=== PATIENT | female | born 1935 | race Two or more races ===

== ENCOUNTER 2019-03-25 13:27 | Outpatient (CLI) | payer MEDICARE ==
[~2019-03-25] VITALS: Ht 152.4 cm; Wt 63.0 kg
[2019-03-25 16:25] VITALS: BP 143/74
[2019-03-25] MEDS ORDERED: OMEPRAZOLE40 M1 ORAL (16:25)
[2019-03-25] MEDS ORDERED: CREON DR 12,001 EACH PO (16:25)
[2019-03-25] MEDS ORDERED: FIBER350 GM PO (16:25)
--- NOTE | 2019-03-25 17:30 | Consultation ---
DATE OF CONSULTATION: 03/25/2019 CONSULTING PHYSICIAN: Zia Morales M.D. CHIEF COMPLAINT: Abdominal pain. HISTORY OF PRESENT ILLNESS: This is a very pleasant 84-year-old female with numerous medical problems, which I will dictate in a second. Family brought a lot of records from another hospital admissions. Apparently, the patient had history of cholecystitis requiring cholecystectomy. The patient had evidence of SIBO requiring Xifaxan treatment. The patient had evidence of pancreatitis, which required admission to the hospital after cholecystectomy. The patient has a pancreatic cyst. She had an FNA done in October 2018. Apparently results were negative. The patient complained of some gas, bloating, abdominal pain, weight loss, weakness. Had multiple endoscopies and colonoscopies. At one point, she was diagnosed with gastric ulcer, which on subsequent endoscopy showed evidence of healing. H. pylori negative. PAST MEDICAL HISTORY: 1. GERD. 2. Peptic ulcer disease. 3. SIBO. 4. Pancreatitis. 5. Pancreatic cyst. 6. Diabetes. ALLERGIES: To Levaquin. MEDICATIONS: Please see medication reconciliation list. PAST SURGICAL HISTORY: Has history of cholecystectomy and hysterectomy. FAMILY HISTORY: Noncontributory. SOCIAL HISTORY: The patient denies any tobacco, alcohol, or drug abuse. REVIEW OF SYSTEMS: Positive for abdominal pain, bloating, diarrhea, nausea, vomiting. PHYSICAL EXAMINATION: VITAL SIGNS: Temperature is 97.8, blood pressure is 143/74, pulse 71, respirations 20. HEENT: Normocephalic and atraumatic. Sclerae anicteric. NECK: Supple. No evidence of obvious lymphadenopathy. CARDIOVASCULAR: Regular rate and rhythm. Plus S1 and S2. No obvious murmur. LUNGS: Clear to auscultation bilaterally. ABDOMEN: Positive bowel sounds. Soft. Mildly distended. Mildly tympanic to percussion. No rebound. No guarding. No peritoneal sign. EXTREMITIES: No cyanosis, no clubbing, no edema. ASSESSMENT: This is an 84-year-old female with numerous medical problems. 1. From GI standpoint has chronic GERD, on PPI twice a day. 2. History of peptic ulcer disease and H. pylori negative, status post treatment. 3. SIBO, status post 1 course of Xifaxan. 4. Cholecystitis, status post cholecystectomy. 5. Pancreatic cyst, status post FNA. PLAN: The patient was instructed to continue on PPI twice a day. Continue on Creon 1 tablet 3 times a day with each meal. Xifaxan at this time for 14 days followed by Align 1 tablet daily for 2 months. The patient was reassured about condition that there is not anything at this time life-threatening and concerning. The patient was instructed at one point might need a repeat EUS with FNA of pancreas given the weight loss and prior history of pancreatic cyst, but she had done in October. We recommend to be done at least in July of 2019. Meanwhile, the patient was told to come back in a month for followup. Avoid any uncooked foods and vegetables. Avoid food with lactulose in it or dairy products. I will follow her up in a month. Zia Morales M.D. DR: CLAUDETTE JOB#: [id number] CC:
== END 2019-03-25 15:27 | disposition home or self-care (01) ==
LOC: PAN 13:27
DX: R10.9 Unspecified abdominal pain (principal); K21.9 Gastro-esophageal reflux disease without esophagitis; Z87.11 Personal history of peptic ulcer disease; Z90.49 Acquired absence of other specified parts of digestive tract; R19.7 Diarrhea, unspecified; R14.0 Abdominal distension (gaseous); K56.609 Unspecified intestinal obstruction, unspecified as to partial versus complete obstruction
CPT/HCPCS: G0463

== ENCOUNTER 2019-04-10 13:34 | Outpatient (CLI) | payer MEDICARE, MEDICAID ==
[~2019-04-10 13:34] MED LIST: CREON DR 12,001 EACH PO; FIBER350 GM PO; OMEPRAZOLE40 M1 ORAL
--- NOTE | 2019-04-10 14:53 | General Progress Note ---
Assessment/Plan Assessment/Plan: 1. GERD. 2. Peptic ulcer disease. 3. SIBO. 4. Pancreatitis. 5. Pancreatic cyst. 6. Diabetes. had a long D/w her son who is MD plan ERCP Subjective ROS Limited/Unobtainable: Yes Allergies: Coded Allergies: LEVOFLOXACIN (Verified Allergy, Unknown, 03/25/19) Objective General Appearance: alert EENT: normal ENT inspection Neck: normal alignment Cardiovascular: normal rate Respiratory/Chest: decreased breath sounds Abdomen: normal bowel sounds, non tender, soft Extremities: non-tender Zia Morales MD Apr 10, 2019 14:53
== END 2019-04-10 15:34 | disposition home or self-care (01) ==
LOC: PAN 13:34
DX: K21.9 Gastro-esophageal reflux disease without esophagitis (principal); K27.9 Peptic ulcer, site unspecified, unspecified as acute or chronic, without hemorrhage or perforation; K56.609 Unspecified intestinal obstruction, unspecified as to partial versus complete obstruction; E11.9 Type 2 diabetes mellitus without complications; K86.2 Cyst of pancreas; Z88.8 Allergy status to other drugs, medicaments and biological substances
CPT/HCPCS: 99212

== ENCOUNTER 2019-04-15 09:07 | Day surgery (SDC) | payer MEDICARE, MEDICAID ==
[2019-04-15] VITALS (9 sets, daily range): BP systolic 135–154; BP diastolic 57–77
[~2019-04-15] VITALS: Ht 165.1 cm; Wt 59.9 kg
[~2019-04-15 09:07] MED LIST changes: +Ketamine 500mg/10ml vial ONE; +LR 1000ml 1,000 ML IVLG SCH; +Lidocaine 1% Plain 30 ml INJ ONE; +Midazolam 2mg/2ml Inj ONE
--- NOTE | 2019-04-15 09:40 | Short Stay Surgery H&P ---
History of Present Illness History of Present Illness Chief Complaint see recent office consult note HPI Beatrice Marcelino is a 84 year old female who was admitted on for Abdominal Pain Patient History Allergies: Coded Allergies: LEVOFLOXACIN (Verified Allergy, Unknown, 03/25/19) Medication History Scheduled Lipase/Protease/Amylase (Creon Dr 12,000 Units Capsule), 1 EACH PO TID, ( Reported) Omeprazole (Omeprazole), 40 MG ORAL DAILY, (Reported) Miscellaneous Medications Dextrin (Fiber), Unknown Dose PO, (Reported) Physical Exam Vital Signs Last Vital Signs Date Time Temp Pulse Resp B/P (MAP) Pulse Ox O2 Delivery O2 Flow Rate FiO2 04/15/19 09:34 Room Air Plan Attestation Are the patient's medical conditions optimized for surgery? Zia Morales MD Apr 15, 2019 09:40
--- NOTE | 2019-04-15 09:40 | Pre-Procedure Note/Attestation ---
Pre-Procedure Note/Attestation Complete Prior to Procedure Planned Procedure: not applicable Procedure Narrative: ercp Indications for Procedure Pre-Operative Diagnosis: papillary stenosis Attestation I attest that I discussed the nature of the procedure; its benefits; risks and complications; and alternatives (and the risks and benefits of such alternatives ), prior to the procedure, with the patient (or the patient's legal maintenance representative). I attest that, if there was a reasonable possibility of needing a blood transfusion, the patient (or the patient's legal maintenance representative) was given the [facility] standardized written summary, pursuant to the [place] Blood Safety Act ([place] Health and Safety Code # 1645, as amended). I attest that I re-evaluated the patient just prior to the surgery and that there has been no change in the patient's H&P, except as documented below: Zia Morales MD Apr 15, 2019 09:40
[2019-04-15] MEDS ORDERED: Iothalamate Meglumine 60% 50ML INJ ONE ×2 (10:18→11:30)
[2019-04-15 10:28] LABS: BASOPHILS % (AUTO) 0.7 % (0.0-2.0); HEMOGLOBIN 11.7 G/DL (12.0-16.0); LYMPHOCYTES % (AUTO) 17.3 % (20.0-45.0); MEAN CORPUSCULAR VOLUME 85 FL (80-99); MONOCYTES % (AUTO) 7.9 % (1.0-10.0); NEUTROPHILS % (AUTO) 73.1 % (45.0-75.0); PLATELET COUNT 267 K/UL (150-450); RED BLOOD COUNT 4.12 M/UL (4.20-5.40); RED CELL DISTRIBUTION WIDTH 15.8 % (11.6-14.8); WHITE BLOOD COUNT 6.3 K/UL (4.8-10.8)
[2019-04-15] MEDS ORDERED: LR 1000ml 1,000 ML IVLG SCH ×2 (10:34)
--- NOTE | 2019-04-15 10:42 | Anethesia Preoperative Eval ---
Anesthesia Pre-op PMH/ROS General Date of Evaluation: Apr 15, 2019 Time of Evaluation: 11:10 Anesthesiologist: Karthikeyan ASA Score: ASA 3 Mallampati Score Class I : Soft palate, uvula, fauces, pillars visible Class II: Soft palate, uvula, fauces visible Class III: Soft palate, base of uvula visible Class IV: Only hard plate visible Mallampati Classification: Class II Surgeon: Andrew Diagnosis: Abd Pain Surgical Procedure: ERCP Anesthesia History: none Family History: no anesthesia problems Allergies: Coded Allergies: LEVOFLOXACIN (Verified Allergy, Intermediate, swelling, 04/15/19) Medications: see eMAR Patient NPO?: Yes Past Medical History Cardiovascular: Reports: HTN Pulmonary: Reports: other - Bronchitis, L Lobectomy Gastrointestinal/Genitourinary: Reports: other - Pancreatitis, GI Ulcer, SBO HEENT: Reports: cataract (L), cataract (R) PSxH Narrative: DEB, Cholecystectomy, L Lobectomy Anesthesia Pre-op Phys. Exam Physician Exam Last Vital Signs Date Time Temp Pulse Resp B/P (MAP) Pulse Ox O2 Delivery O2 Flow Rate FiO2 04/15/19 09:39 96.8 85 18 154/77 98 Room Air Constitutional: NAD Neurologic: CN 2-12 intact Cardiovascular: RRR Respiratory: CTA Gastrointestinal: S/NT/ND Airway Exam Mallampati Score: Class II MO: limited ROM: limited Teeth: missing, intact Anesthesia Pre-op A/P Labs Hematology Test 04/15/19 10:15 White Blood Count 6.3 K/UL (4.8-10.8) Red Blood Count 4.12 M/UL (4.20-5.40) L Hemoglobin 11.7 G/DL (12.0-16.0) L Hematocrit 35.0 % (37.0-47.0) L Mean Corpuscular Volume 85 FL (80-99) Mean Corpuscular Hemoglobin 28.4 PG (27.0-31.0) Mean Corpuscular Hemoglobin Concent 33.5 G/DL (32.0-36.0) Red Cell Distribution Width 15.8 % (11.6-14.8) H Platelet Count 267 K/UL (150-450) Mean Platelet Volume 6.9 FL (6.5-10.1) Neutrophils (%) (Auto) 73.1 % (45.0-75.0) Lymphocytes (%) (Auto) 17.3 % (20.0-45.0) L Monocytes (%) (Auto) 7.9 % (1.0-10.0) Eosinophils (%) (Auto) 1.0 % (0.0-3.0) Basophils (%) (Auto) 0.7 % (0.0-2.0) Coagulation Test 04/15/19 10:15 Prothrombin Time Pending Prothromb Time International Ratio Pending Activated Partial Thromboplast Time Pending Chemistry Test 04/15/19 10:15 Sodium Level Pending Potassium Level Pending Chloride Level Pending Carbon Dioxide Level Pending Blood Urea Nitrogen Pending Creatinine Pending Estimat Glomerular Filtration Rate Pending Glucose Level Pending Calcium Level Pending Total Bilirubin Pending Aspartate Amino Transf (AST/SGOT) Pending Alanine Aminotransferase (ALT/SGPT) Pending Alkaline Phosphatase Pending Total Protein Pending Albumin Pending Globulin Pending Amylase Level Pending Lipase Pending Risk Assessment & Plan Assessment: ASA 3 Plan: TIVA Status Change Before Surgery: Jaspreet Waller MD Apr 15, 2019 10:42
--- NOTE | 2019-04-15 10:43 | Immediate Post-Op Evaluation ---
Immediate Post-Op Evalulation Immediate Post-Op Evalulation Procedure: ERCP Date of Evaluation: Apr 15, 2019 Time of Evaluation: 12:23 IV Fluids: 600 LR Blood Products: 0 Estimated Blood Loss: 10 Urinary Output: 0 Blood Pressure Systolic: 141 Blood Pressure Diastolic: 77 Pulse Rate: 89 Respiratory Rate: 16 O2 Sat by Pulse Oximetry: 100 Temperature (Fahrenheit): 97.3 Pain Score (1-10): 2 Nausea: No Vomiting: No Complications 0 Patient Status: awake, reacts, patent, none Hydration Status: adequate Jaspreet Napier MD Apr 15, 2019 10:43
--- NOTE | 2019-04-15 10:44 | 48 Hour Post Anesthesia Eval ---
Post Anesthesia Evaluation Procedure: ERCP Date of Evaluation: Apr 15, 2019 Time of Evaluation: 14:32 Blood Pressure Systolic: 167 0: 92 Pulse Rate: 89 Respiratory Rate: 18 Temperature (Fahrenheit): 98 O2 Sat by Pulse Oximetry: 99 Airway: patent Nausea: No Vomiting: No Pain Intensity: 2 Hydration Status: adequate Cardiopulmonary Status: Stable Mental Status/LOC: patient returned to baseline Follow-up Care/Observations: 0 Post-Anesthesia Complications: 0 Follow-up care needed: ready to discharge Jaspreet Napier MD Apr 15, 2019 10:44
[2019-04-15] MEDS ORDERED: Midazolam 2mg/2ml Inj IVP PRN ×2 (10:45)
[2019-04-15] MEDS ORDERED: LORazepam Inj 2mg/ml 1ml IV PRN ×2 (10:45)
[2019-04-15] MEDS ORDERED: oxyCODONE HCL/Acetaminophen 5/325mg ORAL PRN ×2 (10:45)
[2019-04-15] MEDS ORDERED: HYDROcodone/Acetamin 7.5/325 tab ORAL PRN ×2 (10:45)
[2019-04-15] MEDS ORDERED: fentaNYL 100 mcg/2 mL IV PRN ×2 (10:45)
[2019-04-15] MEDS ORDERED: Meperidine 25mg/0.5ml Inj (FOR RIGORS ONLY) IV PRN ×2 (10:45)
[2019-04-15] MEDS ORDERED: Metoclopramide 10mg/2ml Inj IVP PRN ×2 (10:45)
[2019-04-15] MEDS ORDERED: DiphenhydrAMINE 50mg/ml Inj IVP PRN ×2 (10:45)
[2019-04-15] MEDS ORDERED: HYDROcodone/Acetamin 5/325 tab ORAL PRN ×2 (10:45)
[2019-04-15] MEDS ORDERED: Atropine Sulfate 0.4mg/ml inj IVP PRN ×2 (10:45)
[2019-04-15] MEDS ORDERED: Ketorolac 30mg Inj IV PRN ×4 (10:45)
[2019-04-15] MEDS ORDERED: Hydromorphone 0.5mg/0.5ml inj IVP PRN ×2 (10:45)
[2019-04-15] MEDS ORDERED: Labetalol 5mg/ml 20ml vial IV PRN ×2 (10:45)
[2019-04-15] MEDS ORDERED: Propofol 200mg/20ml IV ONE (11:00)
[2019-04-15] MEDS ORDERED: LR 1000ml ONE (11:00)
[2019-04-15 11:06] LABS: ANION GAP 10 mmol/L (5-15); BLOOD UREA NITROGEN 10 mg/dL (7-18); CALCIUM 8.8 MG/DL (8.5-10.1); CARBON DIOXIDE 29 MMOL/L (21-32); CHLORIDE 97 MMOL/L (98-107); CREATININE 0.5 MG/DL (0.55-1.30); POTASSIUM 3.6 MMOL/L (3.5-5.1); SODIUM 136 MMOL/L (136-145)
[2019-04-15 11:28] LABS: ALANINE AMINOTRANSFERASE 218 U/L (12-78); ALBUMIN 2.3 G/DL (3.4-5.0); ALBUMIN/GLOBULIN RATIO 0.6 (1.0-2.7); ALKALINE PHOSPHATASE 492 U/L (46-116); AMYLASE 15 U/L (25-115); ASPARTATE AMINO TRANSFERASE 265 U/L (15-37); BILIRUBIN,TOTAL 10.7 MG/DL (0.2-1.0)
[2019-04-15 11:30] LABS: BILIRUBIN,DIRECT 9.3 MG/DL (0.0-0.3)
--- NOTE | 2019-04-15 14:31 | Endoscopy Procedure Note ---
Endoscopy Procedure Note General Indication for Procedure: juandice Procedures Performed: ERCP Operative Findings/Diagnosis: stricture Specimen: yes Pt Tolerated Procedure Well: Yes Estimated Blood Loss: none Anesthesia Anesthesiologist: mark Anesthesia: MAC Inserted Devices Implant(s) used?: No GI Core Measures 50 yrs or older w/o bx or poly: Not Applicable 10yrs. F/U recommended: Not Applicable Zia Morales MD Apr 15, 2019 14:31
--- NOTE | 2019-04-15 16:31 | Diagnostic Imaging Report ---
INDICATION: Pain, intraoperative TECHNIQUE: Intraoperative imaging Fluoroscopy time: To 46.2 seconds Total dose: 1.87 mGym2 Total number of images: 14 COMPARISON: None FINDINGS: Intraoperative images document opacification of the common bile duct and central intrahepatic bile ducts, which are considerably dilated. There does appear to be stricturing of the downstream common bile duct. Subsequent images demonstrate evidence of balloon cholangioplasty and placement of a plastic and a biliary stent IMPRESSION: Intraoperative imaging, as described
--- NOTE | 2019-04-15 18:30 | Procedure Note ---
DATE OF PROCEDURE: 04/15/2019 SURGEON: Zia Morales M.D. PROCEDURE: ERCP with sphincterotomy, dilatation, and stent placement. ANESTHESIA: Per Dr. Napier. INSTRUMENT: Olympus adult flexible ERCP scope. INDICATION: Jaundice. REASON FOR PROCEDURE: The procedure, risks, benefits, and possible consequences, including hemorrhage, aspiration, perforation and infection, and alternative treatments, were explained to the patient/legal guardian by Dr. Zia Morales and the patient/legal guardian understood and accepted these risks. DESCRIPTION OF PROCEDURE: After informed consent was obtained and the patient was adequately sedated, ERCP scope was advanced from mouth into the second portion of the duodenum. Using a sphincterotome, common bile duct was selectively cannulated. Initial cholangiogram showed evidence of proximal common bile duct dilatation to about 12 to 13 mm. As we get to the distal common bile duct, there was narrowing and stricture in the distal common bile duct measured roughly about 1 to 2 cm. Then, over a guidewire using sphincterotomy technique 95% sphincterotomy was performed. Using a balloon, a 6 mm x 4 cm balloon was used to dilate the distal common bile duct stricture. Then over a guidewire, we placed 5 cm stent bypassing the stricture. After the stent was placed, drainage was excellent. At this time, the scope was removed and procedure was terminated. SUMMARY OF FINDINGS: 1. Distal common bile duct stricture, most probably responsible for this jaundice. 2. Status post ERCP, sphincterotomy, dilation and stenting. RECOMMENDATIONS: The patient to follow up in the office next week for labs follow up. I spoke with the family physician, the patient needs a CT of the abdomen and pelvis with pancreatic protocol to rule out malignancy of the pancreas and if that is negative, we will recommend EUS. Zia Morales M.D. DR: Liu JOB#: [id number] CC:
== END 2019-04-15 13:30 | disposition home or self-care (01) ==
LOC: GAS 09:07
DX: R17 Unspecified jaundice (principal); R10.9 Unspecified abdominal pain; Z88.8 Allergy status to other drugs, medicaments and biological substances; I10 Essential (primary) hypertension; Z90.49 Acquired absence of other specified parts of digestive tract
CPT/HCPCS: 36415; 43262; 43274; 43277; 74328; 76000; 80053; 82150; 82248; 83690; 85025; 85610; 85730; 93005; J2001; J2250; J2704; J3490; J7120; 94003; 94150

== ENCOUNTER 2019-04-26 09:20 | Day surgery (SDC) | payer MEDICARE, MEDICAID ==
[2019-04-26] VITALS (10 sets, daily range): BP systolic 132–165; BP diastolic 58–72
[~2019-04-26] VITALS: Ht 152.4 cm; Wt 58.0 kg
--- NOTE | 2019-04-26 08:28 | Anethesia Preoperative Eval ---
Anesthesia Pre-op PMH/ROS General Date of Evaluation: Apr 26, 2019 Anesthesiologist: King ASA Score: ASA 3 Mallampati Score Class I : Soft palate, uvula, fauces, pillars visible Class II: Soft palate, uvula, fauces visible Class III: Soft palate, base of uvula visible Class IV: Only hard plate visible Mallampati Classification: Class II Surgeon: Andrew Diagnosis: Pancreatitis Surgical Procedure: EUS Anesthesia History: none Family History: no anesthesia problems Allergies: Coded Allergies: LEVOFLOXACIN (Verified Allergy, Intermediate, swelling, 04/15/19) Medications: see eMAR Patient NPO?: Yes NPO Date: Apr 26, 2019 NPO Time: 00:00 Past Medical History Cardiovascular: Reports: HTN; Denies: CAD, NC, valve dz, arrhythmia, other Pulmonary: Denies: asthma, COPD, AMBER, other Gastrointestinal/Genitourinary: Reports: GERD, other - pancreatitis; Denies: CRI, ESRD Neurologic/Psychiatric: Reports: depression/anxiety; Denies: dementia, CVA, TIA, other Endocrine: Denies: DM, hypothyroidism, steroids, other HEENT: Denies: cataract (L), cataract (R), glaucoma, [place] (L), [place] (R), other Hematology/Immune: Denies: anemia, DVT, bleeding disorder, other Musculoskeletal/Integumentary: Reports: OA, DJD; Denies: RA, DDD, edema, other PSxH Narrative: ciarra, DEB, left lobectomy, cat sx Anesthesia Pre-op Phys. Exam Physician Exam see chart Constitutional: NAD Cardiovascular: RRR Airway Exam Mallampati Score: Class II MO: limited ROM: limited Teeth: missing, intact Dentures: upper - partial, lower - partial Anesthesia Pre-op A/P Labs see chart Studies Pre-op Studies: EKG - sr Risk Assessment & Plan Assessment: ASA III Plan: MAC Status Change Before Surgery: No Pre-Antibiotics Drug: N/A Navya Boston MD Apr 26, 2019 08:28
[~2019-04-26 09:20] MED LIST changes: +DiphenhydrAMINE 50mg/ml Inj IVP PRN; -Ketamine 500mg/10ml vial ONE; -Lidocaine 1% Plain 30 ml INJ ONE; -Midazolam 2mg/2ml Inj ONE
--- NOTE | 2019-04-26 10:23 | Pre-Procedure Note/Attestation ---
Pre-Procedure Note/Attestation Complete Prior to Procedure Planned Procedure: not applicable Procedure Narrative: eus Indications for Procedure Pre-Operative Diagnosis: panc mass Attestation I attest that I discussed the nature of the procedure; its benefits; risks and complications; and alternatives (and the risks and benefits of such alternatives ), prior to the procedure, with the patient (or the patient's legal livestock sales representative). I attest that, if there was a reasonable possibility of needing a blood transfusion, the patient (or the patient's legal livestock sales representative) was given the [facility] standardized written summary, pursuant to the [place] Blood Safety Act ([place] Health and Safety Code # 1645, as amended). I attest that I re-evaluated the patient just prior to the surgery and that there has been no change in the patient's H&P, except as documented below: Zia Moraels MD Apr 26, 2019 10:23
--- NOTE | 2019-04-26 10:23 | Short Stay Surgery H&P ---
History of Present Illness History of Present Illness Chief Complaint see recent office note HPI Beatrice Marcelino is a 84 year old female who was admitted on for Abdominal Pain Patient History Allergies: Coded Allergies: LEVOFLOXACIN (Verified Allergy, Intermediate, swelling, 04/15/19) Medication History Scheduled Lipase/Protease/Amylase (Creon Dr 12,000 Units Capsule), 1 EACH PO TID, ( Reported) Omeprazole (Omeprazole), 40 MG ORAL DAILY, (Reported) Miscellaneous Medications Dextrin (Fiber), Unknown Dose PO, (Reported) Plan Attestation Are the patient's medical conditions optimized for surgery? Zia Morales MD Apr 26, 2019 10:23
[2019-04-26 10:54] LABS: BASOPHILS % (AUTO) 1.2 % (0.0-2.0); EOSINOPHILS % (AUTO) 2.3 % (0.0-3.0); HEMATOCRIT 32.6 % (37.0-47.0); HEMOGLOBIN 11.2 G/DL (12.0-16.0); LYMPHOCYTES % (AUTO) 24.7 % (20.0-45.0); MEAN CORPUSCULAR VOLUME 84 FL (80-99); NEUTROPHILS % (AUTO) 61.9 % (45.0-75.0); PLATELET COUNT 342 K/UL (150-450); RED BLOOD COUNT 3.86 M/UL (4.20-5.40); RED CELL DISTRIBUTION WIDTH 15.5 % (11.6-14.8); WHITE BLOOD COUNT 5.7 K/UL (4.8-10.8)
[2019-04-26] MEDS ORDERED: LR 1000ml ONE (11:00)
[2019-04-26] MEDS ORDERED: Lidocaine 1% MPF 10mg/ml 5ml ONE (11:00)
[2019-04-26] MEDS ORDERED: Propofol 200mg/20ml IV ONE (11:00)
[2019-04-26 11:02] LABS: ANION GAP 10 mmol/L (5-15); BLOOD UREA NITROGEN 12 mg/dL (7-18); CALCIUM 9.1 MG/DL (8.5-10.1); CARBON DIOXIDE 27 MMOL/L (21-32); CHLORIDE 102 MMOL/L (98-107); CREATININE 0.5 MG/DL (0.55-1.30); POTASSIUM 3.6 MMOL/L (3.5-5.1); SODIUM 139 MMOL/L (136-145)
[2019-04-26 11:12] LABS: ALANINE AMINOTRANSFERASE 46 U/L (12-78); ALBUMIN 2.5 G/DL (3.4-5.0); ALBUMIN/GLOBULIN RATIO 0.7 (1.0-2.7); ALKALINE PHOSPHATASE 157 U/L (46-116); AMYLASE 24 U/L (25-115); ASPARTATE AMINO TRANSFERASE 49 U/L (15-37); BILIRUBIN,TOTAL 1.7 MG/DL (0.2-1.0)
[2019-04-26 11:14] LABS: BILIRUBIN,DIRECT 1.4 MG/DL (0.0-0.3)
--- NOTE | 2019-04-26 12:22 | Immediate Post-Op Evaluation ---
Immediate Post-Op Evalulation Immediate Post-Op Evalulation Procedure: EUS Date of Evaluation: Apr 26, 2019 Time of Evaluation: 12:15 IV Fluids: 400 Blood Products: 0 Estimated Blood Loss: 0 Urinary Output: 0 Blood Pressure Systolic: 96 Blood Pressure Diastolic: 46 Pulse Rate: 76 Respiratory Rate: 17 O2 Sat by Pulse Oximetry: 100 Temperature (Fahrenheit): 97.4 Pain Score (1-10): 0 Nausea: No Vomiting: No Complications 0 Patient Status: awake, reacts, patent, none Hydration Status: adequate Drug: N/A Navya Boston MD Apr 26, 2019 12:22
--- NOTE | 2019-04-26 12:23 | 48 Hour Post Anesthesia Eval ---
Post Anesthesia Evaluation Procedure: EUS Date of Evaluation: Apr 26, 2019 Airway: patent Nausea: No Vomiting: No Pain Intensity: 0 Hydration Status: adequate Cardiopulmonary Status: at baseline Mental Status/LOC: patient returned to baseline Post-Anesthesia Complications: 0 Follow-up care needed: ready to discharge Navya Boston MD Apr 26, 2019 12:23
--- NOTE | 2019-04-26 12:24 | Endoscopy Procedure Note ---
Endoscopy Procedure Note General Indication for Procedure: pancreatic mass Procedures Performed: other - EUS Operative Findings/Diagnosis: same Specimen: yes Pt Tolerated Procedure Well: Yes Estimated Blood Loss: none Anesthesia Anesthesiologist: allen Anesthesia: MAC Inserted Devices Implant(s) used?: No GI Core Measures 50 yrs or older w/o bx or poly: Not Applicable 10yrs. F/U recommended: Not Applicable Zia Morales MD Apr 26, 2019 12:24
--- NOTE | 2019-04-26 18:45 | Procedure Note ---
DATE OF PROCEDURE: 04/26/2019 SURGEON: Zia Morales M.D. PROCEDURE: EUS with FNA. ANESTHESIA: Per Dr. Malik. INSTRUMENT: Olympus EUS scope. INDICATION: Pancreatic mass. REASON FOR PROCEDURE: The procedure, risks, benefits, and possible consequences, including hemorrhage, aspiration, perforation and infection, and alternative treatments, were explained to the patient/legal guardian by Dr. Zia Morales and the patient/legal guardian understood and accepted these risks. PROCEDURE IN DETAIL: After informed consent was obtained and the patient was adequately sedated, the EUS radial scope was introduced into the esophagus and stomach and then into the second portion of the duodenum. Starting scanning at celiac axis, there was no significant celiac axis lymphadenopathy. There was pancreatic duct dilated in the body of the pancreas about 4 mm. There was a cystic structure at the junction of the neck and at the genu of the pancreas, there is cystic structure measured roughly about 2.5 centimeter in size. Then, scope was passed into the duodenal bulb and second portion of the duodenum where the head of the pancreas was examined. Stent was seen protruding into the common bile duct. The common bile duct at this time is not significantly dilated given the stent in it. There is a hypoechoic lesion roughly about 2 cm in the head of the pancreas, very difficult location. Stent is seen going through this region also. This is suspicious for malignancy. At this time, we changed the scope to a linear scope. We used a 22-gauge needle and did three passes of this head lesion. This was very challenging procedure given the lesion is a little bit farther and deep in this tissue, so it was hard to reach and is also relatively small, so it was very challenging. So, we did three passes and submitted to pathology and waiting for the biopsy results. SUMMARY OF FINDINGS: 1. Dilated pancreatic body in the body of the pancreas about 4 mm. 2. Cystic structure in the genu of the pancreas measured roughly about 2.5 centimeter. 3. Stent seen in the common bile duct. 4. Hypoechoic lesion roughly about 2 cm in the head of the pancreas, status post FNA x3. RECOMMENDATIONS: Follow FNA results and treat accordingly. The patient might benefit from MRI for further evaluation of this lesion and possibly surgical consultation if the patient is a candidate. Zia Ananda Morales DR: FATEMEH JOB#: [id number] CC:
== END 2019-04-26 13:25 | disposition home or self-care (01) ==
LOC: GAS 09:20
DX: K86.9 Disease of pancreas, unspecified (principal); Z88.8 Allergy status to other drugs, medicaments and biological substances; I10 Essential (primary) hypertension; K21.9 Gastro-esophageal reflux disease without esophagitis; F32.9 Major depressive disorder, single episode, unspecified; F41.9 Anxiety disorder, unspecified; M19.90 Unspecified osteoarthritis, unspecified site; Z90.49 Acquired absence of other specified parts of digestive tract
CPT/HCPCS: 36415; 43232; 80053; 82150; 82248; 83690; 85025; J2704; J7120; 94003; 94150